=== PATIENT | male | born 1990 | race Caucasian/White ===

== ENCOUNTER 2018-08-16 21:59 | Emergency (ER) | payer SELFPAY ==
[2018-08-16 22:10] VITALS: BP 150/66; PULSE 90; TEMP 99.1; BMI 38.4
--- NOTE | 2018-08-16 23:45 | PDOC ---
History of Present Illness - General Chief Complaint: Pain Stated Complaint: PELVIC/GROIN - History of Present Illness Initial Comments: 08/16/18 23:44 27 yo with no PMH presents for R testicle pain for 3 days. He states that the pain started in his suprapubic region and has radiated down to his testicle with intermittent pain. He endorses burning on urination during this time however he denies any fevers, chills, nausea, vomiting. Of note the patient states he had UTI's as a child and this pain does not feel as severe as his pain was during those times. he also states that he had a rare infection around the age of 14 and had to have his left testicle surgically removed. Past History - Travel Traveled outside of the country in the last 30 days: No - Past Medical History Allergies/Adverse Reactions: Allergies Allergy/AdvReac Type Severity Reaction Status Date / Time No Known Allergies Allergy Verified 08/16/18 22:06 COPD: No Other medical history: Pt denies - Suicide/Smoking/Psychosocial Hx Smoking History: Never smoked Have you smoked in the past 12 months: No Information on smoking cessation initiated: No Hx Alcohol Use: No Drug/Substance Use Hx: No Review of Systems - Review of Systems Able to Perform ROS?: Yes Constitutional: No: Chills, Fever HEENTM: No: Blurred Vision Respiratory: No: Cough, Shortness of Breath Cardiac (ROS): No: Chest Pain, Edema ABD/GI: No: Abdominal Distended, Diarrhea, Nausea, Vomiting : Yes: Burning, Dysuria, Pain, Testicular Swelling, Testicular Pain. No: Discharge, Hematuria *Physical Exam - Vital Signs Last Vital Signs Temp Pulse Resp BP Pulse Ox 99.1 F 90 18 150/66 100 08/16/18 22:06 08/16/18 22:06 08/16/18 22:06 08/16/18 22:06 08/16/18 22:06 - Physical Exam Comments: 08/16/18 23:44 GEN: A&O, no acute distress HEENT: Moist mucus membranes HEART: RRR, no murmurs noted LUNGS: CTA b/l ABDOMEN: Soft, mild tenderness to palpation in the suprapubic region : Testicular swelling inferior to right testicle. No left testicle present. No erythema, discharge or lesions noted on or around penis or scrotum EXTREMITIES: no peripheral edema Moderate Sedation - Procedure Monitoring Vital Signs: Procedure Monitoring Vital Signs Temperature 99.1 F 08/16/18 22:06 Pulse Rate 90 08/16/18 22:06 Respiratory Rate 18 08/16/18 22:06 Blood Pressure 150/66 08/16/18 22:06 O2 Sat by Pulse Oximetry (%) 100 08/16/18 22:06 Medical Decision Making - Medical Decision Making 08/17/18 00:16 27 yo male presents with testicular and suprapubic pain for 3 days. CBC, CMP, UA/Culture, GC swab sent. Will give Rocephin/Azithromycin to cover for UTI/Prostatitis/Epididymitis/GC at this time Sign out given to night resident who will continue care from this point on. *DC/Admit/Observation/Transfer Diagnosis at time of Disposition: Testicle pain - Referrals - Patient Instructions - Post Discharge Activity
--- NOTE | 2018-08-17 00:06 | PDOC ---
Attending Attestation - Resident Resident Name: Reynold Kim - ED Attending Attestation I have performed the following: I have examined & evaluated the patient, The case was reviewed & discussed with the resident, I agree w/resident's findings & plan - HPI HPI: 08/17/18 01:53 27-year-old male complaining of testicular pain with history of previous infection with testicle removal There is no history of fever vomiting or trauma. - Physicial Exam PE: 08/17/18 01:53 Agree with resident's exam - Medical Decision Making 08/17/18 01:53 27-year-old male with testicular pain Ultrasound is consistent with epididymitis/orchitis Patient received Rocephin and azithromycin, he will be discharged on doxycycline 10 days with outpatient urology follow-up
[2018-08-17] MEDS ORDERED: CEFTRIAXONE 1,000 MG in DEXTROSE 5%-WATER - 50 ML IVPB ONE (00:19)
[2018-08-17] MEDS ORDERED: AZITHROMYCIN IVPB 500 MG in DEXTROSE 5%-WATER - 250 ML IVPB ONE (00:20)
[2018-08-17 00:59] LABS: URINE APPEARANCE CLEAR; URINE BILIRUBIN NEGATIVE (<2.0 mg/dL); URINE COLOR LTYELLOW; URINE GLUCOSE (UA) NEGATIVE (NEGATIVE); URINE KETONE NEGATIVE (NEGATIVE); URINE LEUK ESTERASE 2+ (NEGATIVE); URINE NITRITE NEGATIVE (NEGATIVE); URINE PROTEIN NEGATIVE (NEGATIVE); URINE UROBILINOGEN NEGATIVE mg/dL (0.2-1.0)
[2018-08-17 01:04] LABS: EPI CELLS RARE /HPF (FEW); URINE MUCUS RARE
[2018-08-17] MEDS ORDERED: AZITHROMYCIN IVPB 500 MG/250 ML BAG IVPB ONE (01:32)
[2018-08-17] MEDS ORDERED: CEFTRIAXONE 1 GM/50 ML BAG ONE (01:32)
[2018-08-17 01:37] LABS: BASO % 0.6 % (0-2.0); EOS % 1.7 % (0-4.5); HEMOGLOBIN 14.7 GM/dL (11.7-16.9); LYMPH % 21.8 % (8-40); MCH 31.8 pg (25.7-33.7); MCHC 35.1 g/dl (32.0-35.9); MEAN CELL VOLUME 90.4 fl (80-96); MEAN PLT VOLUME 8.9 fl (7.5-11.1); MONO % 7.3 % (3.8-10.2); NEUT % 68.6 % (42.8-82.8); PLATELET COUNT 196 K/MM3 (134-434); RBC 4.64 M/mm3 (4.00-5.60); RDW 13.8 % (11.9-15.9); WHITE BLOOD COUNT 9.2 K/mm3 (4.0-10.0)
--- NOTE | 2018-08-17 01:50 | PDOC ---
*Physical Exam - Vital Signs Last Vital Signs Temp Pulse Resp BP Pulse Ox 99.1 F 90 18 150/66 100 08/16/18 22:06 08/16/18 22:06 08/16/18 22:06 08/16/18 22:06 08/17/18 01:26 ED Treatment Course - LABORATORY CBC & Chemistry Diagram: 08/17/18 01:20 08/17/18 01:20 - ADDITIONAL ORDERS Additional order review: Laboratory Results 08/17/18 00:10 Urine Color Ltyellow Urine Appearance Clear Urine pH 6.0 Ur Specific [place] 1.012 Urine Protein Negative Urine Glucose (UA) Negative Urine Ketones Negative Urine Blood 1+ H Urine Nitrite Negative Urine Bilirubin Negative Urine Urobilinogen Negative Ur Leukocyte Esterase 2+ H Urine WBC (Auto) 62 Urine RBC (Auto) 1 Ur Epithelial Cells Rare Urine Mucus Rare 08/17/18 01:20 RBC 4.64 MCV 90.4 MCHC 35.1 RDW 13.8 MPV 8.9 Neutrophils % 68.6 Lymphocytes % 21.8 Monocytes % 7.3 Eosinophils % 1.7 Basophils % 0.6 - RADIOLOGY Radiograph Interpretation: Scrotal U/S Emmett Peace MD wrote on Aug 17, 2018 at 01:45 AM: Referring Physician: JOAQUIM GARZON Patient Name: VANESSA LEYVA THIS IS A PRELIMINARY REPORT FROM [facility] DATE OF SERVICE: 2018-08-17 00:34:24 IMAGES: 49 EXAM: Scrotal ultrasound with Doppler study of the right testicle. HISTORY: Pain. History of left orchiectomy. COMPARISON: None. FINDINGS: Right side: Right testicle is homogeneous in appearance without focal lesion. However, there is increased vascularity in the right epididymis and possibly the right testicle as well. Strong suspicion of right epididymitis. Question orchitis as well. Note made of a 9.1 mm right epididymal cyst. THIS DOCUMENT HAS BEEN ELECTRONICALLY SIGNED Emmett Peace MD 08/17/2018 01:45 EST - Medications Given in the ED: ED Medications Discontinued Medications Generic Name Dose Route Start Last Admin Trade Name Freq PRN Reason Stop Dose Admin Azithromycin 500 mg/ Dextrose 250 mls @ 250 mls/hr 08/17/18 00:20 08/17/18 01 :40 IVPB 08/17/18 01:19 250 mls/hr ONCE ONE Administration Ceftriaxone Sodium 1,000 mg/ 50 mls @ 100 mls/hr 08/17/18 00:19 08/17/18 01: 40 Dextrose IVPB 08/17/18 00:48 100 mls/hr ONCE ONE Administration Medical Decision Making - Medical Decision Making Received sign out from resident Dr. Kim. In short, pt is a 27 y/o male presenting with right testicle and lower abdominal/pelvic pain. 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 age 14 following unknown infection. UA remarkable for pyuria and leukocyte esterase. Pt given ceftriaxone and azithromycin. Will follow up on pending labs and scrotal U/S. CBC unremarkable for leukocytosis. BMP unremarkable for elevation in Cr or BUN. Normal renal function. Scrotal U/S suggestive for epididymitis. Will prescribe PO Doxycycline for outpatient antibiotic coverage. Pt referred to urologist and to resident clinic to establish primary care. Provided copies of todays results. *DC/Admit/Observation/Transfer Diagnosis at time of Disposition: Testicle pain, Epididymitis - Discharge Dispostion Disposition: HOME Condition at time of disposition: Good Decision to Admit order: No - Prescriptions Prescriptions: Doxycycline Hyclate 100 mg PO BID 10 Days #20 tablet - Referrals Schedule a call back: STD Panel and Urine Culture [place] [facility] [place] Group] - Patient Instructions Printed Discharge Instructions: DI for Epididymitis Additional Instructions: You were seen today for scrotal and pelvic pain. The ultrasound showed you have epididymitis. Your blood work was normal. The final urine tests will take several days to result. The hospital will call you if the results are positive. I have sent a prescription for an antibiotic to your pharmacy. Please take as directed on the package. Please follow up with a urologist within the next week. I have placed a referral for you to see Dr. Laird. You will need to call to make an appointment. The number is included in this packet. I have also referred you to the resident clinic for primary care follow up. You will need to call to make an appointment. Go to the nearest emergency department if your symptoms worsen or you feel like you need an additional emergency evaluation. Print Language: UKRAINIAN - Post Discharge Activity Forms/Work/School Notes: Back to Work
[2018-08-17 03:01] LABS: ALBUMIN 4.1 g/dl (3.4-5.0); ALK PHOS 104 U/L (45-117); ANION GAP 8 MMOL/L (8-16); BILIRUBIN,TOTAL 0.7 mg/dL (0.2-1); BLOOD UREA NITROGEN 15 mg/dL (7-18); CALCIUM 9.2 mg/dL (8.5-10.1); CHLORIDE 97 mmol/L (98-107); CO2 27 mmol/L (21-32); CREATININE 1.1 mg/dL (0.55-1.3); GLUCOSE,RANDOM 84 mg/dL (74-106); POTASSIUM 3.9 mmol/L (3.5-5.1); SGPT/ALT 40 U/L (13-61); SODIUM 132 mmol/L (136-145); TOT PROT 9.6 g/dl (6.4-8.2)
[2018-08-17 03:28] LABS: SGOT/AST 20 U/L (15-37)
== END 2018-08-17 04:46 | disposition home or self-care (01) ==
LOC: JER 21:59
DX: N45.1 Epididymitis (principal); Z90.79 Acquired absence of other genital organ(s)
CPT/HCPCS: 36415; 76870-TC; 80053; 81003; 81015; 85025; 87086; 87491; 87591; 87661; 99284-25

== ENCOUNTER 2018-10-21 16:56 | Emergency (ER) | payer SELFPAY ==
[2018-10-21 17:05] VITALS: BMI 37.2
--- NOTE | 2018-10-21 17:10 | PDOC ---
Rapid Medical Evaluation Chief Complaint: Nausea/Vomiting Time Seen by Provider: 10/21/18 17:07 Medical Evaluation: Allergies Allergy/AdvReac Type Severity Reaction Status Date / Time No Known Allergies Allergy Verified 10/21/18 17:05 Vital Signs Temp Pulse Resp BP Pulse Ox 98.0 F 104 H 16 141/82 97 10/21/18 17:01 10/21/18 17:01 10/21/18 17:01 10/21/18 17:01 10/21/18 17:01 10/21/18 17:17 I have performed a brief in-person evaluation of this patient. The patient presents with a chief complaint of: dizziness, light headedness and nausea with vomiting s/p drinking 4 cups of vodka Pertinent physical exam findings: A&O x 3 I have ordered the following: CBC, CMP, Utox The patient will proceed to the ED for further evaluation. Discharge Disposition - Diagnosis Dizziness Nausea & vomiting Qualifiers: Vomiting type: unspecified Vomiting Intractability: non-intractable Qualified Code(s): R11.2 - Nausea with vomiting, unspecified - Discharge Dispostion Condition at time of disposition: Stable - Referrals - Patient Instructions - Post Discharge Activity
[2018-10-21 17:41] LABS: BASO % 0.6 % (0-2.0); EOS % 1.5 % (0-4.5); HEMATOCRIT 47.2 % (35.4-49); HEMOGLOBIN 15.5 GM/dL (11.7-16.9); LYMPH % 18.3 % (8-40); MCH 30.2 pg (25.7-33.7); MCHC 32.9 g/dl (32.0-35.9); MEAN CELL VOLUME 91.6 fl (80-96); MEAN PLT VOLUME 9.2 fl (7.5-11.1); MONO % 6.4 % (3.8-10.2); NEUT % 73.2 % (42.8-82.8); PLATELET COUNT 192 K/MM3 (134-434); RBC 5.15 M/mm3 (4.00-5.60); RDW 13.7 % (11.9-15.9); WHITE BLOOD COUNT 5.9 K/mm3 (4.0-10.0)
--- NOTE | 2018-10-21 17:47 | PDOC ---
History of Present Illness - History of Present Illness Initial Comments: 10/21/18 17:50 28 yo M with no significant pmhx presents with one day history of nausea and vomiting. He returned from vacation in [facility] yesterday where he had been drinking alcohol and spending time in sun. He states that upon his return home he felt nauseous and vomited x2 NBNB. No vomiting here in ER. Nausea and vomiting is accompanied by lightheadedness. He denies eating anything suspicious or any sick contacts. He was able to eat 1/2 cup of ice cream here. Denies CP,CHACON, SOB, abdominal pain, fever or chills. Timing/Duration: unsure, 24 hours <Ricky Edouard - Last Filed: 10/21/18 20:36> <Mary Roper - Last Filed: 10/21/18 21:44> - General Chief Complaint: Nausea/Vomiting Stated Complaint: DIZZINESS/VOMITING Time Seen by Provider: 10/21/18 17:07 Past History - Travel Traveled outside of the country in the last 30 days: Yes If so, where?: [facility] Close contact w/someone who was outside of country & ill: No - Past Medical History COPD: No - Surgical History Orthopedic Surgery: Yes (right shoulder) - Immunization History Immunization Up to Date: Yes - Suicide/Smoking/Psychosocial Hx Smoking History: Current some day smoker (vapor cig) Have you smoked in the past 12 months: Yes Information on smoking cessation initiated: No Hx Alcohol Use: Yes Drug/Substance Use Hx: No <Ricky Edouard - Last Filed: 10/21/18 20:36> <Mary Roper - Last Filed: 10/21/18 21:44> - Past Medical History Allergies/Adverse Reactions: Allergies Allergy/AdvReac Type Severity Reaction Status Date / Time No Known Allergies Allergy Verified 10/21/18 17:05 Home Medications: Ambulatory Orders NK [No Known Home Medication] 10/21/18 Review of Systems - Review of Systems Able to Perform ROS?: Yes Is the patient limited Haitian proficient: No Constitutional: Yes: Loss of Appetite, Weakness. No: Chills, Fever HEENTM: No: Blurred Vision, Double Vision Respiratory: No: Cough Cardiac (ROS): No: Chest Pain, Irregular Heart Rate ABD/GI: Yes: Nausea, Vomiting. No: Abdominal Distended Neurological: No: Headache, Unsteady Gait Psychiatric: No: Anxiety, Depression <Ricky Edouard - Last Filed: 10/21/18 20:36> *Physical Exam - Vital Signs Last Vital Signs Temp Pulse Resp BP Pulse Ox 98.0 F 104 H 16 141/82 97 10/21/18 17:01 10/21/18 17:01 10/21/18 17:01 10/21/18 17:01 10/21/18 17:01 - Physical Exam General Appearance: Yes: Appropriately Dressed. No: Apparent Distress HEENT: positive: TIM, Normal ENT Inspection, Pharynx Normal, Other (dry mucous membranes) Neck: positive: Trachea midline, Supple. negative: Tender Respiratory/Chest: positive: Lungs Clear, Normal Breath Sounds. negative: Respiratory Distress, Accessory Muscle Use Cardiovascular: positive: Regular Rate, S1, S2, Tachycardia. negative: Edema, JVD, Murmur Vascular Pulses: Dorsalis-Pedis (R): 2+, Doralis-Pedis (L): 2+ Gastrointestinal/Abdominal: positive: Normal Bowel Sounds, Flat. negative: Tender Musculoskeletal: positive: Normal Inspection. negative: CVA Tenderness Extremity: positive: Normal Inspection, Normal Range of Motion. negative: Calf Tenderness Integumentary: positive: Normal Color, Dry, Warm Neurologic: positive: air traffic instructor II-XII NML intact, Fully Oriented, Motor Strength 5/5 <Ricky Edouard - Last Filed: 10/21/18 20:36> - Vital Signs Last Vital Signs Temp Pulse Resp BP Pulse Ox 98.0 F 104 H 16 141/82 97 10/21/18 17:01 10/21/18 17:01 10/21/18 17:01 10/21/18 17:01 10/21/18 17:01 <Mary Roper - Last Filed: 10/21/18 21:44> ED Treatment Course - LABORATORY CBC & Chemistry Diagram: 10/21/18 17:25 10/21/18 17:25 <Ricky Edouard - Last Filed: 10/21/18 20:36> - LABORATORY CBC & Chemistry Diagram: 10/21/18 17:25 10/21/18 17:25 - ADDITIONAL ORDERS Additional order review: Laboratory Results 10/21/18 17:25 Sodium 139 Potassium 3.9 Chloride 104 Carbon Dioxide 28 Anion Gap 7 L BUN 13 Creatinine 1.1 Est GFR (CKD-EPI)AfAm 106.06 Est GFR (CKD-EPI)NonAf 91.51 Random Glucose 125 H Calcium 9.8 Total Bilirubin 0.7 AST 22 ALT 38 Alkaline Phosphatase 106 Total Protein 8.0 Albumin 4.3 10/21/18 17:25 RBC 5.15 MCV 91.6 MCHC 32.9 RDW 13.7 MPV 9.2 Neutrophils % 73.2 Lymphocytes % 18.3 Monocytes % 6.4 Eosinophils % 1.5 Basophils % 0.6 - Medications Given in the ED: ED Medications Discontinued Medications Generic Name Dose Route Start Last Admin Trade Name Freq PRN Reason Stop Dose Admin Sodium Chloride 1,000 mls @ 1,000 mls/hr 10/21/18 17:51 10/21/18 18:02 Normal Saline - IV 10/21/18 18:50 1,000 mls/hr ASDIR STA Administration Ondansetron HCl 4 mg 10/21/18 17:56 10/21/18 18:09 Zofran Injection IVPUSH 10/21/18 17:57 4 mg ONCE ONE Administration <Mary Roper - Last Filed: 10/21/18 21:44> Medical Decision Making - Medical Decision Making 10/21/18 18:01 ordered CMP, Utox, 1L IVF and Zofran ; will reassess. 10/21/18 18:26 CBC and CMP returned WNL except for BG 125. Patient lying comfortably on stretcher. 10/21/18 20:36 Patient was given PO challenge with no issues. Feels much better. Awaiting IVF to complete. <Ricky Edouard - Last Filed: 10/21/18 20:36> *DC/Admit/Observation/Transfer - Discharge Dispostion Decision to Admit order: No <Ricky Edouard - Last Filed: 10/21/18 20:36> - Discharge Dispostion Decision to Admit order: No <Mary Roper - Last Filed: 10/21/18 21:44> Diagnosis at time of Disposition: Dizziness Nausea & vomiting Qualifiers: Vomiting type: unspecified Vomiting Intractability: non-intractable Qualified Code(s): R11.2 - Nausea with vomiting, unspecified - Discharge Dispostion Disposition: HOME Condition at time of disposition: Stable - Referrals Referrals: Alejandro Thomason MD [Staff Physician] - - Patient Instructions Printed Discharge Instructions: DI for Nausea -- Adult Additional Instructions: You can increase your activity as tolerated. Resume a regular diet. If symptoms worsen or you develop fever or chills please return to ER.
[2018-10-21] MEDS ORDERED: SODIUM CHLORIDE 1,000 ML IV STA (17:51)
[2018-10-21] MEDS ORDERED: ONDANSETRON 4 MG/2 ML VIAL IVPUSH ONE (17:56)
[2018-10-21 18:02] LABS: ALBUMIN 4.3 g/dl (3.4-5.0); BILIRUBIN,TOTAL 0.7 mg/dL (0.2-1); CALCIUM 9.8 mg/dL (8.5-10.1); CREATININE 1.1 mg/dL (0.55-1.3); POTASSIUM 3.9 mmol/L (3.5-5.1)
[2018-10-21] MEDS ORDERED: ONDANSETRON 4 MG/2 ML VIAL ONE (18:03)
--- NOTE | 2018-10-21 19:41 | PDOC ---
Documentation entered by Haley Lozano SCRIBE, acting as scribe for Mary Roper DO. Mary Roper DO: This documentation has been prepared by the Marta calderon Daisy, SCRIBE, under my direction and personally reviewed by me in its entirety. I confirm that the documentation accurately reflects all work, treatment, procedures, and medical decision making performed by me. Attending Attestation - Resident Resident Name: Ricky Edouard - ED Attending Attestation I have performed the following: I have examined & evaluated the patient, The case was reviewed & discussed with the resident, I agree w/resident's findings & plan, Exceptions are as noted - HPI HPI: 10/21/18 17:48 The patient is a 28 YOM, otherwise healthy male, who presents to the ER for 2 episodes of NB, NB vomit and intermittent dizziness since yesterday. He states he recently returned from the [place] and admits to having multiple alcoholic beverages while there. Allergies: NKDA Surgeries: right rotator cuff Social Hx: Denies toxic habits - Physicial Exam PE: 10/21/18 17:56 ADULT PHYSICAL EXAM Constitutional: Awake, alert, oriented. No acute distress. Head: Normocephalic. Atraumatic Eyes: PERRL. EOMI. Conjunctivae are not pale. ENT: (+) Dry mucus membranes. Posterior pharynx without exudates or erythema. Uvula midline. Neck: Supple. Full ROM. No lymphadenopathy. Cardiovascular: Regular rate. Regular rhythm. S1, S2 regular. Distal pulses are 2+ and symmetric. Pulmonary/Chest: No evidence of respiratory distress. Clear to auscultation bilaterally. No wheezing, rales or rhonchi. Abdominal: Soft and non-distended. There is no tenderness. Good bowel sounds. Musculoskeletal: No edema. No cyanosis. No clubbing. Full range of motion in all extremities. Nocalf tenderness. Radial/pedal pulses are intact and 2+ bilaterally Skin: Skin is warm and dry. Brisk cap refill in the fingers and toes. No petechiae. No purpura. Neurological: Alert and oriented to person, place, and time. Cranial nerves II -XII are grossly intact. Normal speech. Psychiatric: Good eye contact. Normal interaction, affect and behavior. - Medical Decision Making 10/21/18 18:14 I, Dr. Mary Roper, DO, attest that this document has been prepared under my direction and personally reviewed by me in its entirety. I further attest, that it accurately reflects all work, treatment, procedures and medical decision -making performed by me. 10/21/18 18:14 a/p: 28yo male with etoh use yesterday with 2 episodes of nbnb vomiting today -no abd pain -had a bm yesterday -passing gas -non acute abd -labs sent from [facility] -nonelevated wbc -no abd ttp -pt drank 4 glasses of alcohol on his trip back from [place] -will give zofran and ivf -pt ate ice cream just prior to eval and did not throw up 10/21/18 19:40 pt currently po challenging pending ua no acute renal or liver changes chemistry stable 10/21/18 20:40 labs reviewed pt tolerated po and feels better stable for dc to home
[2018-10-21 22:13] VITALS: BP 136/76; PULSE 98; TEMP 98.5
[2018-10-21 22:20] LABS: COCAINE, UR NEGATIVE ng/ml (CUTOFF=300); METHADONE, UR NEGATIVE ng/ml (CUTOFF=300); OPIATES, URI NEGATIVE ng/ml (CUTOFF=300); PHENCYCLIDINE,URINE NEGATIVE ng/ml (CUTOFF=25); URINE BARBITURATES NEGATIVE ng/ml (CUTOFF=200); URINE BENZODIAZEPINES NEGATIVE ng/ml (CUTOFF=200)
[2018-10-21 23:34] LABS: URINE AMPHETAMINES NEGATIVE ng/ml (CUTOFF=500)
== END 2018-10-21 22:14 | disposition home or self-care (01) ==
LOC: JER 16:56
PROC: 3E0337Z Introduction of Electrolytic and Water Balance Substance into Peripheral Vein, Percutaneous Approach (ICD-10-PCS; principal; 2018-10-21)
PROC: 3E033GC Introduction of Other Therapeutic Substance into Peripheral Vein, Percutaneous Approach (ICD-10-PCS; 2018-10-21)
DX: R42 Dizziness and giddiness (principal); R11.2 Nausea with vomiting, unspecified
CPT/HCPCS: 36415; 80053; 80307; 85025; 99282-25; J7030

== ENCOUNTER 2021-06-20 17:03 | Emergency (ER) | payer OTHER ==
[2021-06-20 17:14] VITALS: BMI 38.4
[2021-06-20 18:02] VITALS: BP 124/82; PULSE 102; TEMP 99.2
[2021-06-20] MEDS ORDERED: SODIUM CHLORIDE 0.9% 500 ML INFUS.BAG IV ONE (18:12)
[2021-06-20 19:36] LABS: BASO % 0.3 % (0-2.0); EOS % 2.1 % (0-4.5); HEMATOCRIT 40.7 % (35.4-49); LYMPH % 23.4 % (8-40); MCH 30.1 pg (25.7-33.7); MCHC 34.3 g/dl (32.0-35.9); MEAN CELL VOLUME 87.8 fl (80-96); MEAN PLT VOLUME 9.2 fl (7.5-11.1); NEUT % 65.2 % (42.8-82.8); PLATELET COUNT 198 10^3/uL (134-434); RBC 4.64 M/mm3 (4.00-5.60); RDW 12.6 % (11.9-15.9); WHITE BLOOD COUNT 4.7 K/mm3 (4.0-10.0)
[2021-06-20 19:46] LABS: INR 1.22 (0.83-1.09); PROTHROMBIN TIME (PATIENT) 14.1 SEC (9.7-13.0)
[2021-06-20 20:46] LABS: CHLORIDE 104 mmol/L (98-107); SODIUM 138 mmol/L (136-145)
[2021-06-20 20:48] LABS: CALCIUM 9.5 mg/dL (8.5-10.1)
[2021-06-20 20:49] LABS: ALBUMIN 4.5 g/dl (3.4-5.0); ANION GAP 9 MMOL/L (8-16); CO2 26 mmol/L (21-32); GLUCOSE,RANDOM 88 mg/dL (74-106)
[2021-06-20 20:52] LABS: SGOT/AST 28 U/L (15-37); SGPT/ALT 67 U/L (13-61)
[2021-06-20 20:53] LABS: BILIRUBIN,TOTAL 0.6 mg/dL (0.2-1)
[2021-06-20 20:55] LABS: ALK PHOS 56 U/L (45-117)
== END 2021-06-20 21:58 | disposition home or self-care (01) ==
LOC: JER 17:03
DX: R42 Dizziness and giddiness (principal)
CPT/HCPCS: 36415; 71046-TC-FY; 80053; 82550; 82553; 84484; 85025; 85610; 93005; 93010; 99285-25